=== PATIENT | female | born 1940 | race Caucasian/White ===

== ENCOUNTER → 2018-10-21 | Outpatient (CLI) | payer OTHER ==
--- NOTE | 2018-10-21 14:43 | US ---
EXAM DESCRIPTION: 3D Diagnostic, Bilateral (accession [id number]). Digital mammography. Breast,Right (accession [id number]): Ultrasound CLINICAL HISTORY: 77 yearsFemaleBREAST LUMP " Lump in the front of my right breast". "Nipple sunken and hard". Approximately 2 months. No personal or family history of breast cancer. Childbirth. Postmenopausal 40+ years. No HRT. Prior benign right breast cyst aspiration Lifetime risk of developing breast cancer (Tyrer-Cuzick model)(%): 2.6. COMPARISON: First/baseline breast mammogram. TECHNIQUE: Bilateral LM, CC, and MLO projection full-field images, digital mammographic tomosynthesis technique. Bilateral 2-D digital full-field images. LM, CC, and MLO. CAD not utilized. . Transcutaneous scanning of the right breast utilizing pham-scale and Doppler modes. Scanning performed by the client service associate and Dr. Alston. FINDINGS: The breast parenchymal density pattern is: Scattered areas of fibroglandular density. No skin thickening or nipple retraction left breast. Right breast nipple retraction and skin thickening around the nipple and inferior anterior breast. Adjacent to the skin marker, is a palpable, spiculated mass with irregular margins within 1 cm of the posterior nipple measuring 2.6 x 1.5 cm in the sagittal axis and 1.7 cm transverse axis anteriorly and 2.2 cm transverse axis posteriorly. Central calcification visualized in the mass but no group. Bilateral vascular calcifications. Small bilateral axillary nodes. No new focal, stellate mass or density, focal asymmetry , and no suspicious microcalcifications left breast. Ultrasound: Scanning of the anterior right breast posterior to the nipple and in the lower inner quadrant, where masses palpable. Ill-defined hypoechoic mass with spiculated and angulated margins surrounded by echogenic tissue reaction. 3.1 cm in the radial axis to the nipple, and 2.2 x 1.7 cm antiradial axis. Wider than tall orientation with posterior acoustic shadowing predominantly. Minimal vascularity. Thickening of the overlying skin with nipple retraction. No distinct cyst. No large calcifications. IMPRESSION: 1. BI-RADS CATEGORY: 5 HIGHLY SUSPICIOUS FINDINGS. HIGHLY SUGGESTIVE OF MALIGNANCY. 2. Recommendation: Surgical consultation and tissue diagnosis, if there are no other clinical concerns. The FINDINGS and the FOLLOW-UP plan were reviewed in person with the patient after the examination. Written communication explaining the IMPRESSION and FOLLOW-UP will be mailed to the patient and referring care provider. CRITICAL COMMUNICATION: The critical value was communicated by text message from Dr. Alston at 1335 hours, with text acknowledgment by Dr. Tripp Geiger, at approximately 1337 hours, on October 21, 2018.. Electronically signed by: Ervin Alston MD 10/21/2018 2:42 PM CDT
== END ==
LOC: MAMMO 10:00
PROVIDERS: ATTEND Surgery
DX: N63.12 Unspecified lump in the right breast, upper inner quadrant (principal)
CPT/HCPCS: 76641; 77066; G0279

== ENCOUNTER 2018-10-29 05:50 | Day surgery (SDC) | payer MEDICARE, OTHER ==
[2018-10-29] MEDS ORDERED: DEXAMETHASONE INJ 10 MG/ML VIAL ONE (07:00)
[2018-10-29] MEDS ORDERED: PROPOFOL 200 MG/20 ML VIAL IV ONE (07:00)
[2018-10-29] MEDS ORDERED: LIDOCAINE 1% 10 ML VIAL INJ ONE (07:00)
[2018-10-29] MEDS ORDERED: LACTATED RINGERS 1,000 ML ONE (07:32)
[2018-10-29] MEDS ORDERED: MIDAZOLAM INJ 2 MG/2 ML VIAL ONE (10:23)
[2018-10-29] MEDS ORDERED: fentaNYL CITRATE INJ 50 MCG/ML AMP ONE (10:24)
[2018-10-29] MEDS ORDERED: HEPARIN SODIUM 100 U/ML 5 ML SYG IV ONE (10:26)
[2018-10-29] MEDS ORDERED: SODIUM CHLORIDE 0.9% 50 ML VIAL ONE (10:26)
[2018-10-29] MEDS ORDERED: KETAMINE HCL 100 MG/ML VIAL ONE (10:49)
[2018-10-29] MEDS ORDERED: BUPIVACAINE 0.5% W/EPI 30 ML VIAL INJ ONE ×2 (11:23)
--- NOTE | 2018-10-29 12:04 | OP ---
DATE OF PROCEDURE: 10/29/18 PREOPERATIVE DIAGNOSIS: 1. Right breast mass, likely malignant. POSTOPERATIVE DIAGNOSIS: 1. Right breast mass, likely malignant. PROCEDURE: 1. Core breast biopsy, right breast, subareolar times 4. 2. Placement of Port-A-Cath. 3. use of ultrasound___ for placement of intravenous catheter. 4. Intraoperative fluoroscopy less than 1 minute. SURGEON: Chaparro Geiger MD ANESTHESIA: General anesthesia and local. FINDINGS: The mass was subareolar, large, palpable. Three good cores were taken as well as one fatty core. On placement of Port-A-Cath, there was excellent position of the tip, good flow and good curvature at the neck. COMPLICATIONS: None. ESTIMATED BLOOD LOSS: None. CONDITION: Stable. PLAN: Discharge. INDICATION: As stated. PROCEDURE: General anesthesia was induced. She was prepped and draped in sterile fashion. Marcaine 0.5% with epinephrine was used along the incisions. Site-Rite ultrasound, a single stick was necessary to enter the external jugular. A wire was then inserted. Proper position was confirmed. We then prepared the port sight. We nicked next to the wire undermining to allow for curvature. The catheter was introduced, the introducer dilator, removed it and then placed a trimmed Port-A-Cath over the wire confirming proper position of the tip on fluoroscopy. The tunneler was then introduced. The wired was removed. The port made it to the tunneler and taken down to the port site. It was then flushed with saline. It was trimmed, mated and locked to the port. The port was then placed in the pocket and secured with a single medial Prolene suture. We still had excellent flow. It was then flushed with heparin saline solution. Final films showed excellent position and good curvature at the neck. The wounds were closed with Monocryl and dressing was applied. She was awakened and taken to Recovery to be discharged. #[id number] MTDD
[2018-10-29 12:23] VITALS: O2SAT 96
--- NOTE | 2018-10-29 12:53 | RAD ---
EXAM DESCRIPTION: Chest,1 View: CR/DR/XR. CLINICAL HISTORY: 78 years Female POST PORT PLACEMENT COMPARISON: None. TECHNIQUE: ONE VIEW PORTABLE. AP 1215 hours, upright position. FINDINGS: VAD with tip in the superior segments. Vena cava. Right IJ access. No mediastinal widening or pneumothorax. Cardiomegaly prevents visualization of left base. No right pleural effusion. Pulmonary vascularity unremarkable. IMPRESSION: VAD placement customary position. No complications. Cardiomegaly. Normal pulmonary vascularity. Report called to Lisa in outpatient surgery at 1245 hours on 10/29/2018. Electronically signed by: Ervin Alston MD 10/29/2018 12:51 PM CDT
[2018-10-29 12:54] VITALS: BP 162/90; TEMP 98.8
--- NOTE | 2018-10-29 20:17 | RAD ---
EXAM DESCRIPTION: Fluoroscopy Up to 1Hr: RF. CLINICAL HISTORY: 78 years Female PORT PLACEMENT right side central line. COMPARISON: Portable chest x-ray following the procedure. IMPRESSION: Single multiplanar, fluoroscopic image taken by the referring physician intraoperatively during PORT PLACEMENT. Right IJ access. No complicating process is demonstrated. Please refer to surgical report for specific details. Total fluoroscopic time was less than 1 minute. Cumulative dose not recorded . Permanent images of this procedure are stored in the patient's medical record. Electronically signed by: Ervin Alston MD 10/29/2018 8:15 PM CDT
== END 2018-10-29 12:52 | disposition home or self-care (01) ==
LOC: AMB 05:50
PROVIDERS: ATTEND Surgery
DX: C50.911 Malignant neoplasm of unspecified site of right female breast (principal); I10 Essential (primary) hypertension; K21.9 Gastro-esophageal reflux disease without esophagitis; Z17.0 Estrogen receptor positive status [ER+]; Z90.710 Acquired absence of both cervix and uterus; Z79.899 Other long term (current) drug therapy
CPT/HCPCS: 00400; 19100; 36558; 36561; 71045; 76000; 88305; 88341; 88342; 88360; A4216; C1788; J1100; J1642; J2250; J3010; J3490; J7120

== ENCOUNTER → 2019-02-18 | Outpatient (CLI) | payer OTHER ==
--- NOTE | 2019-02-18 16:46 | CT ---
EXAM DESCRIPTION: Chest w/Contrast CLINICAL HISTORY: 78 years Female, PULMONARY NODULE TECHNIQUE: This exam was performed according to our departmental dose-optimization program, which includes automated exposure control, adjustment of the mA and/or kV according to patient size and/or use of iterative reconstruction technique. COMPARISON: None at time of initial interpretation. FINDINGS: Right chest wall port tip within the proximal SVC. No axillary adenopathy. Redemonstrated right breast mass measuring approximately 2.3 cm series 2 image 28, better characterized on the recent diagnostic mammography. Normal caliber thoracic aorta. Coronary artery and aortic valvular calcifications. No evidence of acute process in the visualized upper abdomen. No mediastinal adenopathy. The pulmonary arteries are grossly unremarkable No pneumothorax. No pleural effusion. No focal consolidation or suspicious pulmonary nodule identified. No acute or suspicious osseous abnormality. Scattered degenerative changes present. IMPRESSION: 1. Redemonstrated right breast mass compatible with known malignancy. 2. No other evidence of acute process in the chest. No focal consolidation or suspicious pulmonary nodule identified. Electronically signed by: Choco Badillo MD 02/18/2019 4:44 PM FLARE MAKER
--- NOTE | 2019-02-18 16:58 | US ---
EXAM DESCRIPTION: Breast,Right: Ultrasound CLINICAL HISTORY: 78 yearsFemaleMalignant neoplasm of central portion of right female breast . No malignant mass in the right breast at the 5:00 position 2 cm from the nipple. Evaluating response to medication COMPARISON: Ultrasound right breast 10/21/2018. TECHNIQUE: Transcutaneous scanning of the right breast utilizing pham-scale and Doppler modes. Scanning performed by the circulation tender and Dr. Alston. FINDINGS: Ultrasound: On the prior study, the mass measured 2.9 x 2.2 x 1.7 cm with multiple spiculated and angulated margins, low-density minimal vascularity, and posterior acoustic shadowing. On the current study, the mass measures 2.6 x 1.8 cm, is more heterogeneous and contains more echogenic compartments. Also decreased posterior acoustic shadowing. These findings are interpreted to represent positive response to oral chemotherapy. IMPRESSION: BI-RADS 6: KNOWN BIOPSY-PROVEN MALIGNANCY FOLLOW-UP: Continue oral chemotherapy regimen. Alternatively, surgical excision if clinically appropriate. The FINDINGS and the FOLLOW-UP plan were reviewed in person with the patient after the examination. Written communication explaining the IMPRESSION and FOLLOW-UP will be mailed to the patient and referring care provider. According to the [employer], yearly mammograms are recommended starting at age 40 and continuing as long as a woman is in good health. Any breast change noted on a breast self-exam should be reported promptly to the patient's healthcare provider. Breast MRI is recommended for women with an approximately 20-25% or greater lifetime risk of breast cancer, including women with a strong family history of breast or ovarian cancer and women who have been treated for Hodgkin's disease. A negative mammographic report should not delay tissue diagnosis in patients with significant clinical history or physical findings. Extremely dense breast tissue limits the sensitivity of digital mammography. Electronically signed by: Ervin Alston MD 02/18/2019 4:57 PM DRAFTING DETAILER
== END ==
LOC: US 11:27
PROVIDERS: ATTEND Internal Medicine Hematology & Oncology
DX: C50.111 Malignant neoplasm of central portion of right female breast (principal); C50.311 Malignant neoplasm of lower-inner quadrant of right female breast

== ENCOUNTER 2019-04-23 05:29 | Day surgery (SDC) | payer MEDICARE, OTHER ==
[2019-04-23] MEDS ORDERED: ONDANSETRON INJ 4 MG/2 ML VIAL IV ONE (10:00)
[2019-04-23] MEDS ORDERED: MIDAZOLAM INJ 2 MG/2 ML VIAL IV ONE (10:00)
[2019-04-23] MEDS ORDERED: METOCLOPRAMIDE HCL INJ 10 MG/2 ML VIAL IV ONE (10:00)
[2019-04-23] MEDS ORDERED: DEXAMETHASONE INJ 10 MG/ML VIAL IV ONE (10:00)
[2019-04-23] MEDS ORDERED: raNITIdine HCL INJ 25 MG/ML VIAL IV ONE (10:00)
[2019-04-23] MEDS ORDERED: PROPOFOL 200 MG/20 ML VIAL IV ONE (10:00)
[2019-04-23] MEDS ORDERED: fentaNYL CITRATE INJ 50 MCG/ML 2 ML AMP IV ONE (10:00)
[2019-04-23] MEDS ORDERED: BUPIVACAINE 0.5% W/EPI 30 ML VIAL INJ ONE (14:38)
[2019-04-23] MEDS ORDERED: LACTATED RINGERS 1,000 ML IVS ONE (15:55)
--- NOTE | 2019-04-23 16:29 | OP ---
DATE OF PROCEDURE: 04/23/19 PREOPERATIVE DIAGNOSIS: 1. Right breast cancer post neoadjuvant hormonal therapy. POSTOPERATIVE DIAGNOSIS: 1. Right breast cancer post neoadjuvant hormonal therapy. PROCEDURE: 1. Right breast needle localized wide local excision. 2. Excision of deep right axillary sentinel nodes times 2. 3. Injection for sentinel lymph node identification. SURGEON: Chaparro Geiger MD. ANESTHESIA: General and local. FINDINGS: Two sentinel nodes were identified. Remaining background was under 10%. The first node had suggestion of blue dye in it. The wire placement was viewed with preoperative mammogram and was in the mass. The mass had puckering of the nipple, so therefore as discussed preoperatively, the nipple-areolar complex was to be taken with the lumpectomy. COMPLICATIONS: None. ESTIMATED BLOOD LOSS: Minimal. CONDITION: Stable. PLAN: Discharge. INDICATION: As stated. PROCEDURE: General anesthesia was induced. She was prepped and draped in sterile fashion. 0.5% Marcaine with epinephrine was used at all incision sites. 5 cc of methylene blue dye were injected subareolarly and massaged for 5 minutes. The GPS wire probe was used to identify the signal over the sentinel node. Local anesthesia was used. Incision was made. Subcutaneous tissues were taken down. We then used the handheld LigaSure device to excise the sentinel node. One additional node was identified with the probe. This was removed. Beyond that, there was no significant background remaining. There was good hemostasis confirmed and it was packed with gauze. Next, the lumpectomy was performed. I examined the film and the wire placement. Unfortunately, with the nipple retraction that has been persistent, as we discussed, the patient will have to lose her nipple-areolar complex. Elliptical incision was made and we followed the wire down and ensured the mass of almost 3 cm that we had at least 1 cm margin on either side of the mass, about 5 cm excision, going down and below. X-ray confirmed the mass in the center. There was good hemostasis achieved. We then closed with running 4-0 Monocryl and 3-0 Vicryl. She tolerated the procedure. She was awakened and taken to Recovery to be discharged. #[id number] cc: DO ANGIE Arciniega
--- NOTE | 2019-04-23 16:48 | US ---
EXAM DESCRIPTION: Specimen Study: Ultrasound CLINICAL HISTORY: 78 yearsFemale post excision of the retroareolar right breast mass today after ultrasound guided needle wire localization. COMPARISON: Ultrasound guided, needle wire localization of right breast mass today. TECHNIQUE: Ultrasound of right breast biopsy specimen. Specimen is placed between 2 sheets of x-ray film with ultrasound gel overlying the top sheet and overlying the specimen. FINDINGS: The right breast biopsy specimen contains the 2.6 x 1.8 cm mass seen on today's procedure images and also seen on images from previous examinations. The distal localizing wire and hook are located within the specimen. IMPRESSION: Successful, ultrasound guided, needle wire localization of retroareolar mass in the right breast, with localizing wire and hook present in the biopsy specimen. The specimen is pending pathologic examination at remote laboratory Electronically signed by: Ervin Alston MD 04/23/2019 4:46 PM CDT
[2019-04-23 17:17] VITALS: BP 122/82; TEMP 99.7; O2SAT 99
--- NOTE | 2019-04-25 19:54 | US ---
EXAM DESCRIPTION: Needle Localization (accession [id number]): Ultrasound. Breast-Needle Localization Rt (accession [id number]): Digital mammography. CLINICAL HISTORY: 78 years Female, RT BREAST MASS COMPARISON: Staging breast ultrasound following chemotherapy February 18. Radionuclide sentinel node localization April 21. Ultrasound breast open excision specimen post surgery. TECHNIQUE: The procedure was performed by Dr. Alston; procedure explained to the patient with risks and benefits. The patient gave verbal and written consent. Repeat ultrasound localized the lesion at the right breast 5:00 position, 2 cm from the nipple. Sterile preparation. Sterile ultrasound guidance. 1% Xylocaine 9:1 ratio with sodium bicarbonate for skin and subdermal anesthesia. Skin incision made with # 11 scalpel blade. Medial to lateral approach. Inserted 5 cm Kopans wire needle system to the edge of the lesion, utilizing sterile ultrasound guidance. Wire advanced through the lesion. Needle was removed. Excess wire was clipped. The patient tolerated the procedure well with no immediate complications. Orthogonal digital full-field 2-D and tomosynthesis mammography of the breast performed. Patient transferred to surgery in good condition. FINDINGS: Scans prior to the procedure show a mass in the retroareolar right breast measuring 1.4 x 1.6 cm hypoechoic wider than tall orientation and spiculated margins. Mostly fatty echotexture. The wire hook is visualized in in the medial margin of the mass. 1.1 cm from the skin surface. 4.65 cm from skin entry point. Orthogonal mammograms show the apex of the hook of the localization wire just inside the medial margin of the right breast mass. Nipple retraction, spiculation and microcalcifications associated with the mass. IMPRESSION: Successful, ultrasound-guided needle wire localization of right breast mass prior to surgical excision. Please see post excision ultrasound images of the surgical specimen. Electronically signed by: Ervin Alston MD 04/25/2019 7:52 PM CDT
--- NOTE | 2019-04-28 00:54 | NM ---
EXAM DESCRIPTION: Lymphatics Lymph Nodes CLINICAL HISTORY: BREAST CA right. COMPARISON: Ultrasound-guided needle core biopsy right breast February 18. TECHNIQUE: Procedure was performed by Dr. Alston. Patient supine on scanning table in the nuclear medicine suite. Skin surrounding right breast nipple cleaned with isopropyl alcohol. approximately 50% of the Tc 99M sulfur colloid was injected in 2 equal amounts intradermally at the 3:00 and 9:00 positions of the nipple edge. A total dose of 1.5 mCi of radiopharmaceutical was injected. Standard precautions for handling the radiopharmaceutical were employed. The patient tolerated the procedure with minimal discomfort. No images were recorded. IMPRESSION: Successful, periareolar injection of technetium 99m sulfur colloid intradermally, performed by the radiologist, for sentinel node localization. Localization of nodes with detector to be performed in the surgery suite. Electronically signed by: Ervin Alston MD 04/27/2019 8:34 PM CDT
== END 2019-04-23 17:15 | disposition home or self-care (01) ==
LOC: NM 05:29 → AMB 17:15
PROVIDERS: ATTEND Surgery
DX: C50.111 Malignant neoplasm of central portion of right female breast (principal); I10 Essential (primary) hypertension; K21.9 Gastro-esophageal reflux disease without esophagitis; Z90.49 Acquired absence of other specified parts of digestive tract; Z90.710 Acquired absence of both cervix and uterus; Z79.899 Other long term (current) drug therapy
CPT/HCPCS: 00400; 19120; 19281; 38525; 78195; 88307; 88342; 88360; 88361; J1100; J2250; J2405; J2765; J2780; J3010; J3490; J7120